=== PATIENT | male | born 2000 | race African-American/Black ===

== ENCOUNTER 2022-10-29 08:11 | Emergency (ER) | payer SELFPAY ==
[~2022-10-29] VITALS: Ht 185.4 cm; Wt 80.9 kg
[2022-10-29] MEDS ORDERED: LEXAPRO20 MG PO (08:26)
[2022-10-29] MEDS ORDERED: SEROQUEL50 MG PO (08:26)
[2022-10-29 09:30] VITALS: O2SAT 98
== END 2022-10-29 09:44 | disposition home or self-care (01) ==
LOC: FSED 08:17
DX: R06.02 Shortness of breath (principal); R07.9 Chest pain, unspecified; R42 Dizziness and giddiness; R11.0 Nausea; F41.9 Anxiety disorder, unspecified; F32.A Depression, unspecified; F17.210 Nicotine dependence, cigarettes, uncomplicated
CPT/HCPCS: 71046; 93005; 99283